=== PATIENT | male | born 1990 | race Caucasian/White ===

== ENCOUNTER 2024-08-13 14:48 | Emergency (ER) | payer OTHER, SELFPAY ==
--- NOTE | ~2024-08-13 | XR_ITS ---
XR hand RT min 3V DATE: 08/13/2024 14:58 INDICATION: Punching injury TECHNIQUE: 3 views COMPARISON: None FINDINGS: Nondisplaced boxer's fracture at the neck of the fifth metacarpal bone with mild to moderat e apex posteromedial angulation. No other fracture or dislocation, periosteal reaction or bone destruction. IMPRESSION: Fifth metacarpal boxer's fracture Reviewed, dictated and finalized at location A.
--- NOTE | 2024-08-13 14:50 | ED.GENADULT ---
HPI - General Adult General Chief complaint: Extremity Injury, Upper Stated complaint: broken hand Time Seen by Provider: 08/13/24 14:50 Source: patient Mode of arrival: ambulatory Limitations: no limitations History of Present Illness HPI narrative: This is a 34-year-old male who presents to the ED for chief complaint of right hand injury that occurred just prior to arrival. Patient states that he hit the counter in his garage with close fist and had immediate pain, bruising and swelling. Reports difficulty using the hand but denies any further injury. Denies numbness or weakness. Related Data Allergies Allergy/AdvReac Type Severity Reaction Status Date / Time No Known Allergies Allergy Mild Verified 08/13/24 14:50 Review of Systems Review of Systems: All systems as dictated in HPI Exam Narrative: GENERAL: Well-appearing, well-nourished, and in no acute distress. HEAD: Normocephalic, atraumatic. EYES: PERRLA and EOMI. ENT: Nares clear, no rhinorrhea or epistaxis. Mucous membranes moist. Oropharynx without tonsillar hypertrophy exudate or other lesions. NECK: Supple. No adenopathy or masses. CHEST: No respiratory distress. Clear to auscultation. No wheezes rales or rhonchi HEART: Regular rate and rhythm. No murmur heard. Normal peripheral pulses. ABDOMEN: Soft, nontender, nondistended, normal active bowel sounds. MSK: Right hand: significant bruising, swelling and tenderness to the 5th metacarpal of the right hand dorsally. No gross deformity. Neurovascularly intact distally. able to make a fist Left hand: Benign SKIN: Warm, dry, no rash. NEURO: Alert and oriented x4. No focal deficits. PSYCH: Normal mood and affect. Course Vital Signs Vital signs: Vital Signs Temperature 97.4 F L 08/13/24 15:06 Pulse Rate 97 08/13/24 15:06 Respiratory Rate 17 08/13/24 15:06 Blood Pressure 143/90 H 08/13/24 15:06 Pulse Oximetry 95 08/13/24 15:06 Temperature 97.4 F L 08/13/24 15:06 Pulse Rate 97 08/13/24 15:06 Respiratory Rate 17 08/13/24 15:06 Blood Pressure 143/90 H 08/13/24 15:06 Pulse Oximetry 95 08/13/24 15:06 Medical Decision Making [facility] Narrative Medical decision making narrative: This is a 34 yo male who presents to the ED for chief complaint of right hand injury that occurred just prior to arrival. Vitals Are normal.. Exam shows swollen and bruised right hand. Right hand x-rays: IMPRESSION: Fifth metacarpal boxer's fracture Patient was placed in ulnar gutter splint. Short course of [place] written for breakthrough pain. Patient will be discharged in stable condition. Supportive measures discussed and return precautions given. Patient is understanding and agreeable with plan for discharge with PCP/hand specialist follow-up. Vital Signs Vital Signs: Vital Signs Temperature 97.4 F L 08/13/24 15:06 Pulse Rate 97 08/13/24 15:06 Respiratory Rate 17 08/13/24 15:06 Blood Pressure 143/90 H 08/13/24 15:06 Pulse Oximetry 95 08/13/24 15:06 Temperature 97.4 F L 08/13/24 15:06 Pulse Rate 97 08/13/24 15:06 Respiratory Rate 17 08/13/24 15:06 Blood Pressure 143/90 H 08/13/24 15:06 Pulse Oximetry 95 08/13/24 15:06 Discharge Plan Discharge Clinical Impression: Closed fracture of 5th metacarpal Qualifiers: Encounter type: initial encounter Metacarpal location: neck Laterality: right Patient Disposition: Home, Self-Care Condition: Stable Instructions: Antibiotic Form, Splint Care (ED) Additional Instructions: exam today shows a fracture of the 5th metacarpal bone of your hand. Please follow-up with hand specialist and continue with splint until otherwise directed. Use Tylenol and ibuprofen regularly for pain control. Use [place] for breakthrough pain. If you have any new or worsening symptoms please return to the ER for further evaluation. Prescriptions: New hydrocodone-acetaminophen 5-325 mg tablet 1 tablet PO Q8H PRN (Reason: pain) Qty: 7 0RF Follow-up/Referrals: Germán Brand MD [Physician] - UNKNOWN,DOCTOR [Primary Care Provider] - Time of Disposition: 15:09
[2024-08-13 15:06] VITALS: BP 143/90; PULSE 97; RESP 17; TEMP 36.3; O2SAT 95
== END 2024-08-13 15:28 | disposition home or self-care (01) ==
LOC: ANHED 15:09
PROVIDERS: Emergency Provider Physician Assistant
DX: S62.366A Nondisplaced fracture of neck of fifth metacarpal bone, right hand, initial encounter for closed fracture (principal); W22.8XXA Striking against or struck by other objects, initial encounter
CPT/HCPCS: 29125; 73130; 99284

== ENCOUNTER 2024-08-29 14:50 | Outpatient (CLI) | payer OTHER, SELFPAY ==
--- NOTE | ~2024-08-29 | XR_ITS ---
XR hand RT min 3V Ordering provider: Germán Brand MD History: . F/U. Unspecified fracture of fifth metacarpal bone X 3WKS . Comparison: None. FINDINGS: BONES: Boxer's fracture is seen with 90 degrees angulation. JOINT SPACES: Normal. SOFT TISSUES: Normal. IMPRESSION: Boxer's fracture with 90 degrees angulation. Reviewed, dictated and finalized at location A. R PASSENGER CAR
== END 2024-08-29 14:51 | disposition home or self-care (01) ==
LOC: ANHIMG 14:53
PROVIDERS: Visit Provider Plastic Surgery
DX: S62.306A Unspecified fracture of fifth metacarpal bone, right hand, initial encounter for closed fracture (principal); X58.XXXA Exposure to other specified factors, initial encounter
CPT/HCPCS: 73130

== ENCOUNTER 2024-09-20 15:20 | Outpatient (CLI) | payer OTHER, SELFPAY ==
--- NOTE | ~2024-09-20 | XR_ITS ---
EXAMINATION: XR hand RT min 3V DATE: 09/20/2024 15:36 INDICATION: Unspecified fracture of right fifth metacarpal. TECHNIQUE: 3 views of right hand were obtained. COMPARISON: Right hand radiographs 08/29/2024, 08/13/2024 FINDINGS: There is a comminuted fracture of head and neck of fifth metacarpal. The main distal fractu re fragment demonstrates impaction and 20 degrees palmar angulation. Callus formation is noted. Joint spaces are normal. IMPRESSION: 1. Healing comminuted fracture of head and neck of fifth metacarpal. Reviewed, dictated and finalized at location A. CE CLERK ASSISTANT
== END 2024-09-20 15:21 | disposition home or self-care (01) ==
LOC: ANHIMG 15:24
PROVIDERS: Visit Provider Physician Assistant Surgical
DX: S52.131D Displaced fracture of neck of right radius, subsequent encounter for closed fracture with routine healing (principal); S62.396D Other fracture of fifth metacarpal bone, right hand, subsequent encounter for fracture with routine healing; X58.XXXD Exposure to other specified factors, subsequent encounter
CPT/HCPCS: 73130

== ENCOUNTER 2025-01-01 15:35 | Emergency (ER) | payer OTHER, SELFPAY ==
[2025-01-01 15:41] VITALS: BP 150/91; PULSE 70; RESP 18; TEMP 36.8; O2SAT 99
--- NOTE | 2025-01-01 15:54 | ED.URI ---
HPI - URI/Sore Throat General Chief Complaint: Upper Respiratory Infection Stated Complaint: Ears Irritation/Sore Throat Time Seen by Provider: 01/01/25 15:54 Source: patient Mode of arrival: ambulatory Limitations: no limitations History of Present Illness HPI Narrative: 34-year-old male presents with complaint of clogged sensation to bilateral ears, pain to left ear for 2-3 days. Patient reports sore throat since last night. Started to have headache you, fatigue today. Patient concern for strep throat. All systems reviewed and negative except as noted above. Related Data Home Medications ?Medication ?Instructions ?Recorded ?Confirmed ?Last Taken ?Type blood-glucose sensor (Dexcom G7 01/01/25 01/01/25 Unknown History Sensor device) escitalopram oxalate 10 mg tablet mg 01/01/25 Unknown History insulin lispro 100 unit/mL 01/01/25 Unknown History subcutaneous solution Allergies Allergy/AdvReac Type Severity Reaction Status Date / Time No Known Allergies Allergy Mild Verified 01/01/25 15:37 Review of Systems Review of Systems: CONSTITUTIONAL: Denies fever, chills, or sweats. EYES: Denies visual changes, redness, or discharge. ENT: Denies rhinorrhea, congestion . Reports sore throat, bilateral otalgia. CARDIOVASCULAR: Denies chest pain, palpitations, or edema. RESPIRATORY: Denies cough or dyspnea. GASTROINTESTINAL: Denies abdominal pain, nausea, vomiting, or diarrhea. GENITOURINARY: Denies dysuria or hematuria. SKIN: Denies rash or itching. MUSCULOSKELETAL: Denies back pain, joint pain, or myalgia. NEUROLOGIC: Denies headache, numbness, or weakness. PSYCHIATRIC: Denies anxiety or depression. All other systems reviewed are negative, except as documented in HPI. PMFSH Social History Social History Smoking status: Never smoker Comments At time of signature, agree with nursing past medical, surgical, social and family history. There is no relevant family history pertinent to the presenting complaint. Exam Narrative: GENERAL: This is a well-nourished, well-developed patient, in no apparent distress. HEAD: normocephalic, atraumatic. EYES: PERRL. Sclera clear/white. Vision is grossly intact. EARS: External ears normal, auditory canals clear and without drainage, fluid bilateral TMs, left TM is erythematous and bulging. Hearing grossly intact. NOSE: External nose normal with no obvious nasal discharge, nares without redness, no rhinorrhea. THROAT: Mucous membranes moist, Mild erythema without significant swelling or exudates NECK: Neck supple, non-tender without lymphadenopathy, masses or thyromegaly. CARDIOVASCULAR: Regular rate and rhythm without murmurs, gallops, or rubs. RESPIRATORY: Clear to auscultation. Breath sounds equal bilaterally. No wheezes, rales, or rhonchi. SKIN: warm, Dry, intact with no suspicious lesions or rash, good texture and turgor. NEURO: awake, alert, and oriented to person, place and time. There were no obvious focal neurologic abnormalities. EXTREMITIES: No joint tenderness, effusion, or edema noted. No calf tenderness. Negative Homans sign bilaterally. BACK: Nontender without deformity. No CVA tenderness. Course Course Level of Care: Express Care Visit Vital Signs Vital signs: Vital Signs Temperature 36.8 C 01/01/25 15:41 Pulse Rate 70 01/01/25 15:41 Respiratory Rate 18 01/01/25 15:41 Blood Pressure 150/91 H 01/01/25 15:41 Pulse Oximetry 99 01/01/25 15:41 Oxygen Delivery Room Air 01/01/25 15:41 Temperature 36.8 C 01/01/25 15:41 Pulse Rate 70 01/01/25 15:41 Respiratory Rate 18 01/01/25 15:41 Blood Pressure 150/91 H 01/01/25 15:41 Pulse Oximetry 99 01/01/25 15:41 Oxygen Delivery Room Air 01/01/25 15:41 reviewed MDM - URI/Sore Throat MDM Narrative Medical decision making narrative: negative rapid strep. Strep culture ordered. Will treat patient with amoxicillin for left otitis media. Please be advised this is a medical document. It is intended for [id number] communication. It is written in medical language and may contain unfamiliar abbreviations or verbiage. Medical documents are intended to carry relevant information, facts as evident, and the clinical opinion of the practitioner at the time of the encounter. This report may have been done utilizing a voice recognition system. Attempts have been made to correct errors. However, there may be uncorrected grammatical, spelling, and recognition errors present. The file time of this note does not necessarily represent the time of service. Discharge Plan Discharge Clinical Impression: Acute serous otitis media of left ear, Acute pharyngitis Patient Disposition: Home, Self-Care Condition: Stable Instructions: Antibiotic Form, Fluid In The Ear (Serous Otitis Media) (ED) Additional Instructions: Your strep test was negative today. Your left ear was infected today. Take antibiotic as prescribed until gone. Take ibuprofen or Tylenol every 6-8 hours as needed for pain and fever. See your primary care physician if symptoms are not improving. Patient Language: Maori Prescriptions: New amoxicillin 875 mg tablet 875 mg PO Q12H 10 Days Qty: 20 0RF fluticasone propionate [Flonase Allergy Relief] 50 mcg/actuation spray,suspension 1 spray intranasal BID Qty: 16 0RF Rx Instructions: administer into each nostril cetirizine 10 mg capsule 10 mg PO DAILY Qty: 30 0RF No Action insulin lispro 100 unit/mL solution escitalopram oxalate 10 mg tablet (DME) Dexcom G7 Sensor Device MISCELLANEOUS Follow-up/Referrals: PHYSICIAN,LAUNDRY TECH [Primary Care Provider] - Time of Disposition: 16:03
[2025-01-01 16:05] LABS: EDSTREPNEGPOS1 Negative (Negative)
== END 2025-01-01 16:05 | disposition home or self-care (01) ==
PROVIDERS: Emergency Provider Nurse Practitioner Family
DX: H65.02 Acute serous otitis media, left ear (principal); J02.9 Acute pharyngitis, unspecified; E11.9 Type 2 diabetes mellitus without complications
CPT/HCPCS: 87081; 87880; 99213; G0463